=== PATIENT | male | born 1935 | race Caucasian/White ===

== ENCOUNTER → 2016-10-27 | Outpatient (CLI) | payer MEDICARE, OTHER ==
[2016-10-27 11:49] LABS: ANION GAP 7 (5-19); BLOOD UREA NITROGEN 65 mg/dL (7-20); CALCIUM 9.6 mg/dL (8.4-10.2); CARBON DIOXIDE 31 mmol/L (22-30); CHLORIDE 94 mmol/L (98-107); CREATININE RESULT 1.48 mg/dL (0.52-1.25); GLUCOSE 103 mg/dL (75-110); POTASSIUM 4.3 mmol/L (3.6-5.0); SODIUM 132.2 mmol/L (137-145)
== END ==
LOC: LAB 11:11
PROVIDERS: ATTEND Internal Medicine Cardiovascular Disease
DX: I50.1 Left ventricular failure, unspecified (principal); R06.02 Shortness of breath; N18.9 Chronic kidney disease, unspecified; E11.9 Type 2 diabetes mellitus without complications
CPT/HCPCS: 36415; 80048; 83880

== ENCOUNTER 2016-11-27 11:57 | Observation (INO) | payer OTHER, MEDICARE ==
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
[2016-11-27] MEDS ORDERED: NORMAL SALINE 1000 ML 1,000 ML IV PRN (12:17)
[2016-11-27 13:07] LABS: ABSOLUTE EOSINOPHILS # (AUTO) 0.3 10^3/uL (0.0-0.6); ABSOLUTE LYMPHOCYTES (AUTO) 0.3 10^3/uL (0.5-4.7); ABSOLUTE MONOCYTES (AUTO) 0.6 10^3/uL (0.1-1.4); ABSOLUTE NEUT (AUTO) 3.9 10^3/uL (1.7-8.2); BASOPHILS % (AUTO) 0.9 % (0-2); EOSINOPHILS % (AUTO) 5.5 % (0-6); HEMATOCRIT 36.2 % (37.9-51.0); HEMOGLOBIN 12.2 g/dL (13.5-17.0); HGB HCT DIFFERENCE 0.4; LYMPHOCYTES % (AUTO) 6.2 % (13-45); MEAN CORPUSCULAR HEMOGLOBIN 31.8 pg (27.0-33.4); MEAN CORPUSCULAR HGB CONC 33.7 g/dL (32.0-36.0); MEAN CORPUSCULAR VOLUME 95 fl (80-97); MONOCYTES % (AUTO) 12.1 % (3-13); RED BLOOD COUNT 3.83 10^6/uL (4.35-5.55); RED CELL DISTRIBUTION WIDTH 15.9 % (11.5-14.0); SEGMENTED NEUTROPHILS % (AUTO) 75.3 % (42-78); WHITE BLOOD COUNT 5.1 10^3/uL (4.0-10.5)
[2016-11-27 13:31] LABS: BLOOD UREA NITROGEN 85 mg/dL (7-20); CALCIUM 9.8 mg/dL (8.4-10.2); CREATININE RESULT 1.72 mg/dL (0.52-1.25); GLUCOSE 136 mg/dL (75-110)
[2016-11-27 13:32] LABS: ALANINE AMINOTRANSFERASE 25 U/L (21-72); ALBUMIN 3.1 g/dL (3.5-5.0); ALKALINE PHOSPHATASE 108 U/L (38-126); ANION GAP 10 (5-19); ASPARTATE AMINO TRANSFERASE 24 U/L (17-59); BILIRUBIN,TOTAL 1.2 mg/dL (0.2-1.3); CARBON DIOXIDE 30 mmol/L (22-30); CHLORIDE 88 mmol/L (98-107); CREATINE KINASE 55 U/L (55-170); POTASSIUM 3.4 mmol/L (3.6-5.0); SODIUM 128.4 mmol/L (137-145); TOTAL PROTEIN 5.8 g/dL (6.3-8.2)
[2016-11-27 13:43] LABS: CREATINE KINASE MB 2.89 ng/mL (<4.55)
[2016-11-27 13:49] LABS: TROPONIN I 0.035 ng/mL
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
--- NOTE | 2016-11-27 16:02 | EKG REPORT ---
SEVERITY:- ABNORMAL ECG - VENTRICULAR-PACED COMPLEXES : Confirmed by: Delfin Allen 27-Nov-2016 16:02:06
[2016-11-27] MEDS ORDERED: ACETAMINOPHEN 325 MG TABLET PO PRN (16:30)
[2016-11-27] MEDS ORDERED: LORAZEPAM 0.5 MG TABLET PO PRN (16:39)
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
[2016-11-27] MEDS ORDERED: ENOXAPARIN SODIUM INJ 40 MG/0.4 ML DISP.SYRIN SUBCUT ONE (17:30)
[2016-11-27 18:51] LABS: CREATINE KINASE MB 2.85 ng/mL (<4.55); TROPONIN I 0.035 ng/mL
[2016-11-27 20:17] LABS: APPEARANCE,URINE CLEAR; BILIRUBIN,URINE NEGATIVE (NEGATIVE); GLUCOSE, URINE NEGATIVE (NEGATIVE); KETONES,URINE NEGATIVE (NEGATIVE); LEUKOCYTE ESTERASE,URINE NEGATIVE (NEGATIVE); NITRITE,URINE NEGATIVE (NEGATIVE); PROTEIN,URINE NEGATIVE (NEGATIVE); URINE SPECIFIC GRAVITY 1.006; UROBILINOGEN,URINE NEGATIVE mg/dL (<2.0)
[2016-11-27] MEDS ORDERED: EPLERENONE 25 MG TABLET PO ONE (21:00)
[2016-11-27] MEDS: CARVEDILOL 12.5 MG TABLET PO SCH (21:34)
[2016-11-27] MEDS ORDERED: DIGOXIN 0.125 MG TABLET PO SCH (22:00)
[2016-11-27] MEDS ORDERED: ATORVASTATIN CALCIUM 10 MG TABLET PO SCH (22:00)
[2016-11-27] MEDS ORDERED: CARVEDILOL 12.5 MG TABLET PO SCH (22:00)
[2016-11-27 22:33] LABS: CREATINE KINASE MB 2.47 ng/mL (<4.55); TROPONIN I 0.044 ng/mL
[2016-11-28 04:02] LABS: HEMATOCRIT 34.2 % (37.9-51.0); HEMOGLOBIN 11.6 g/dL (13.5-17.0); HGB HCT DIFFERENCE 0.6; MEAN CORPUSCULAR HEMOGLOBIN 31.6 pg (27.0-33.4); MEAN CORPUSCULAR HGB CONC 33.8 g/dL (32.0-36.0); MEAN CORPUSCULAR VOLUME 94 fl (80-97); RED BLOOD COUNT 3.66 10^6/uL (4.35-5.55); RED CELL DISTRIBUTION WIDTH 15.9 % (11.5-14.0); WHITE BLOOD COUNT 5.3 10^3/uL (4.0-10.5)
[2016-11-28 04:25] LABS: ANION GAP 8 (5-19); BLOOD UREA NITROGEN 87 mg/dL (7-20); CALCIUM 9.8 mg/dL (8.4-10.2); CARBON DIOXIDE 28 mmol/L (22-30); CHLORIDE 92 mmol/L (98-107); CREATINE KINASE 39 U/L (55-170); CREATININE RESULT 1.53 mg/dL (0.52-1.25); GLUCOSE 91 mg/dL (75-110); MAGNESIUM 2.4 mg/dL (1.6-2.3); POTASSIUM 3.4 mmol/L (3.6-5.0); SODIUM 128.4 mmol/L (137-145)
[2016-11-28 04:40] LABS: CREATINE KINASE MB 1.78 ng/mL (<4.55); TROPONIN I 0.05 ng/mL
[2016-11-28] MEDS ORDERED: ENOXAPARIN SODIUM INJ 40 MG/0.4 ML DISP.SYRIN SUBCUT SCH ×2 (08:00)
[2016-11-28] MEDS ORDERED: TORSEMIDE 20 MG TABLET PO SCH (10:00)
[2016-11-28] MEDS ORDERED: (PENDING PHARMACY ID) (Eplerenone [Inspra] 50 MG) PO SCH (10:00)
[2016-11-28] MEDS ORDERED: EPLERENONE 25 MG TABLET PO SCH (10:00)
[2016-11-28] MEDS ORDERED: ASPIRIN 81 MG TABLET, CHEWABLE PO SCH (10:00)
[2016-11-28] MEDS: CARVEDILOL 12.5 MG TABLET PO SCH (10:07)
[2016-11-28 10:46] VITALS: BP 92/58
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
== END 2016-11-28 11:30 | disposition home or self-care (01) ==
LOC: ER 11:57 → EH 16:30 → UNDOADMOB 16:30 → 4N 18:37
PROVIDERS: ADMIT Internal Medicine; ATTEND Internal Medicine
DX: R55 Syncope and collapse (principal); I25.810 Atherosclerosis of coronary artery bypass graft(s) without angina pectoris; R01.1 Cardiac murmur, unspecified; E87.1 Hypo-osmolality and hyponatremia; I48.91 Unspecified atrial fibrillation; G47.33 Obstructive sleep apnea (adult) (pediatric); J45.909 Unspecified asthma, uncomplicated; Z66 Do not resuscitate; Z95.810 Presence of automatic (implantable) cardiac defibrillator; I50.1 Left ventricular failure, unspecified; I25.2 Old myocardial infarction; I12.9 Hypertensive chronic kidney disease with stage 1 through stage 4 chronic kidney disease, or unspecified chronic kidney disease; N18.9 Chronic kidney disease, unspecified; Z95.1 Presence of aortocoronary bypass graft; I95.89 Other hypotension
CPT/HCPCS: 93005; 99285; 36415 ×2; 82553 ×2; 82550 ×2; 80162; 83735 ×2; 85025; 85027; 80048; 80053; 81001; 84484 ×2; 83880; 93880; 71020; 70450; 93010; G0378 ×3; J3490 ×2

== ENCOUNTER → 2017-01-06 | Outpatient (CLI) | payer MEDICARE, OTHER ==
[2017-01-06 10:25] LABS: ABSOLUTE EOSINOPHILS # (AUTO) 0.4 10^3/uL (0.0-0.6); ABSOLUTE LYMPHOCYTES (AUTO) 0.4 10^3/uL (0.5-4.7); ABSOLUTE MONOCYTES (AUTO) 0.6 10^3/uL (0.1-1.4); ABSOLUTE NEUT (AUTO) 3.6 10^3/uL (1.7-8.2); BASOPHILS % (AUTO) 0.8 % (0-2); EOSINOPHILS % (AUTO) 7.4 % (0-6); HEMATOCRIT 34.2 % (37.9-51.0); HEMOGLOBIN 11.4 g/dL (13.5-17.0); LYMPHOCYTES % (AUTO) 8.6 % (13-45); MEAN CORPUSCULAR HEMOGLOBIN 31.2 pg (27.0-33.4); MEAN CORPUSCULAR HGB CONC 33.3 g/dL (32.0-36.0); MEAN CORPUSCULAR VOLUME 94 fl (80-97); MONOCYTES % (AUTO) 11.1 % (3-13); RED BLOOD COUNT 3.65 10^6/uL (4.35-5.55); RED CELL DISTRIBUTION WIDTH 16.3 % (11.5-14.0); SEGMENTED NEUTROPHILS % (AUTO) 72.1 % (42-78)
[2017-01-06 10:44] LABS: ALBUMIN 3.5 g/dL (3.5-5.0); ANION GAP 12 (5-19); BLOOD UREA NITROGEN 88 mg/dL (7-20); CALCIUM 10.1 mg/dL (8.4-10.2); CARBON DIOXIDE 27 mmol/L (22-30); CHLORIDE 91 mmol/L (98-107); CREATININE RESULT 2.16 mg/dL (0.52-1.25); GLUCOSE 119 mg/dL (75-110); POTASSIUM 3.5 mmol/L (3.6-5.0); SODIUM 129.6 mmol/L (137-145)
[2017-01-07 10:38] LABS: CREATININE URINE 69.3 mg/dL (Not Estab.); MICROALBUMIN URINE 6.6 ug/mL (Not Estab.)
== END ==
LOC: LAB 10:07
PROVIDERS: ATTEND Internal Medicine Nephrology
DX: N18.3 Chronic kidney disease, stage 3 (moderate) (principal); E83.52 Hypercalcemia
CPT/HCPCS: 36415; 80048; 82040; 82043; 82570; 83970; 84100; 85025

== ENCOUNTER → 2017-01-12 | Outpatient (CLI) | payer MEDICARE, OTHER ==
[2017-01-12 18:50] LABS: ANION GAP 15 (5-19); BLOOD UREA NITROGEN 98 mg/dL (7-20); CALCIUM 10.2 mg/dL (8.4-10.2); CARBON DIOXIDE 29 mmol/L (22-30); CHLORIDE 86 mmol/L (98-107); CREATININE RESULT 2.17 mg/dL (0.52-1.25); GLUCOSE 130 mg/dL (75-110); POTASSIUM 3.3 mmol/L (3.6-5.0)
== END ==
LOC: OD 12:29
PROVIDERS: ATTEND Internal Medicine Cardiovascular Disease
DX: I49.9 Cardiac arrhythmia, unspecified (principal); R06.02 Shortness of breath; Z79.899 Other long term (current) drug therapy
CPT/HCPCS: 36415; 80048; 83735; 83880

== ENCOUNTER → 2017-01-18 | Outpatient (CLI) | payer MEDICARE, OTHER ==
[2017-01-18 12:23] LABS: ANION GAP 14 (5-19); BLOOD UREA NITROGEN 93 mg/dL (7-20); CALCIUM 10.3 mg/dL (8.4-10.2); CARBON DIOXIDE 28 mmol/L (22-30); CHLORIDE 90 mmol/L (98-107); CREATININE RESULT 1.91 mg/dL (0.52-1.25); GLUCOSE 107 mg/dL (75-110); MAGNESIUM 2.4 mg/dL (1.6-2.3); PHOSPHORUS 4.5 mg/dL (2.5-4.5); POTASSIUM 3.8 mmol/L (3.6-5.0); SODIUM 131.5 mmol/L (137-145)
== END ==
LOC: LAB 11:41
PROVIDERS: ATTEND Internal Medicine Nephrology
DX: N17.9 Acute kidney failure, unspecified (principal); N18.3 Chronic kidney disease, stage 3 (moderate); E87.1 Hypo-osmolality and hyponatremia
CPT/HCPCS: 36415; 80048; 83735; 84100

== ENCOUNTER → 2017-02-12 | Outpatient (CLI) | payer MEDICARE, OTHER ==
[2017-02-12 14:41] LABS: ANION GAP 14 (5-19); BLOOD UREA NITROGEN 91 mg/dL (7-20); CALCIUM 9.8 mg/dL (8.4-10.2); CARBON DIOXIDE 27 mmol/L (22-30); CHLORIDE 90 mmol/L (98-107); CREATININE RESULT 1.95 mg/dL (0.52-1.25); GLUCOSE 156 mg/dL (75-110); POTASSIUM 3.4 mmol/L (3.6-5.0); SODIUM 131.3 mmol/L (137-145)
== END ==
LOC: OD 13:16
PROVIDERS: ATTEND Internal Medicine Cardiovascular Disease
DX: N18.9 Chronic kidney disease, unspecified (principal); R06.02 Shortness of breath
CPT/HCPCS: 36415; 80048; 83880

== ENCOUNTER → 2017-04-05 | Outpatient (CLI) | payer MEDICARE, OTHER ==
[2017-04-05 11:42] LABS: ANION GAP 15 (5-19); BLOOD UREA NITROGEN 105 mg/dL (7-20); CALCIUM 10.4 mg/dL (8.4-10.2); CARBON DIOXIDE 31 mmol/L (22-30); CHLORIDE 83 mmol/L (98-107); CREATININE RESULT 1.99 mg/dL (0.52-1.25); GLUCOSE 115 mg/dL (75-110); PHOSPHORUS 4.2 mg/dL (2.5-4.5); SODIUM 129.4 mmol/L (137-145)
[2017-04-05 11:50] LABS: POTASSIUM 2.9 mmol/L (3.6-5.0)
[2017-04-06 08:05] LABS: VITAMIN D 25-HYDROXY 62.5 ng/mL (30.0-100.0)
== END ==
LOC: LAB 11:01
PROVIDERS: ATTEND Internal Medicine Nephrology
DX: N18.3 Chronic kidney disease, stage 3 (moderate) (principal); E83.39 Other disorders of phosphorus metabolism; N25.81 Secondary hyperparathyroidism of renal origin
CPT/HCPCS: 36415; 80048; 82306; 83970; 84100

== ENCOUNTER → 2017-05-04 | Outpatient (CLI) | payer MEDICARE, OTHER ==
[2017-05-04 12:28] LABS: APPEARANCE,URINE CLEAR; BILIRUBIN,URINE NEGATIVE (NEGATIVE); GLUCOSE, URINE NEGATIVE (NEGATIVE); KETONES,URINE NEGATIVE (NEGATIVE); LEUKOCYTE ESTERASE,URINE NEGATIVE (NEGATIVE); NITRITE,URINE NEGATIVE (NEGATIVE); PROTEIN,URINE NEGATIVE (NEGATIVE); URINE SPECIFIC GRAVITY 1.009; UROBILINOGEN,URINE NEGATIVE mg/dL (<2.0)
[2017-05-04 12:51] LABS: ANION GAP 16 (5-19); BLOOD UREA NITROGEN 86 mg/dL (7-20); CALCIUM 10.3 mg/dL (8.4-10.2); CARBON DIOXIDE 26 mmol/L (22-30); CHLORIDE 87 mmol/L (98-107); CREATININE RESULT 2.25 mg/dL (0.52-1.25); GLUCOSE 151 mg/dL (75-110); POTASSIUM 3.7 mmol/L (3.6-5.0); SODIUM 128.7 mmol/L (137-145)
== END ==
LOC: LAB 11:58
PROVIDERS: ATTEND Internal Medicine Nephrology
DX: N18.3 Chronic kidney disease, stage 3 (moderate) (principal)
CPT/HCPCS: 36415; 80048; 81001

== ENCOUNTER → 2017-07-06 | Outpatient (CLI) | payer MEDICARE, OTHER ==
[2017-07-06 11:38] LABS: ABSOLUTE EOSINOPHILS # (AUTO) 0.5 10^3/uL (0.0-0.6); ABSOLUTE LYMPHOCYTES (AUTO) 0.4 10^3/uL (0.5-4.7); ABSOLUTE MONOCYTES (AUTO) 0.5 10^3/uL (0.1-1.4); ABSOLUTE NEUT (AUTO) 3.1 10^3/uL (1.7-8.2); BASOPHILS % (AUTO) 0.6 % (0-2); EOSINOPHILS % (AUTO) 10.9 % (0-6); HEMATOCRIT 34.2 % (37.9-51.0); HEMOGLOBIN 11.8 g/dL (13.5-17.0); HGB HCT DIFFERENCE 1.2; LYMPHOCYTES % (AUTO) 8.4 % (13-45); MEAN CORPUSCULAR HEMOGLOBIN 32.5 pg (27.0-33.4); MEAN CORPUSCULAR HGB CONC 34.5 g/dL (32.0-36.0); MEAN CORPUSCULAR VOLUME 94 fl (80-97); MONOCYTES % (AUTO) 10.5 % (3-13); RED BLOOD COUNT 3.62 10^6/uL (4.35-5.55); RED CELL DISTRIBUTION WIDTH 15.6 % (11.5-14.0); SEGMENTED NEUTROPHILS % (AUTO) 69.6 % (42-78); WHITE BLOOD COUNT 4.4 10^3/uL (4.0-10.5)
[2017-07-06 11:53] LABS: ANION GAP 13 (5-19); BLOOD UREA NITROGEN 86 mg/dL (7-20); CALCIUM 10.8 mg/dL (8.4-10.2); CARBON DIOXIDE 30 mmol/L (22-30); CHLORIDE 87 mmol/L (98-107); CREATININE RESULT 1.98 mg/dL (0.52-1.25); GLUCOSE 102 mg/dL (75-110); MAGNESIUM 2.4 mg/dL (1.6-2.3); POTASSIUM 3.9 mmol/L (3.6-5.0); SODIUM 129.7 mmol/L (137-145)
[2017-07-07 12:38] LABS: CREATININE URINE 45.5 mg/dL (Not Estab.); MICROALBUMIN URINE 3.2 ug/mL (Not Estab.)
== END ==
LOC: LAB 11:15
PROVIDERS: ATTEND Internal Medicine Nephrology
DX: N18.4 Chronic kidney disease, stage 4 (severe) (principal); E87.6 Hypokalemia
CPT/HCPCS: 36415; 80048; 82043; 82570; 83735; 85025